=== PATIENT | male | born 1960 ===

== ENCOUNTER 2020-08-01 14:28 | Outpatient (AMBR) | payer MEDICAID, SELFPAY ==
--- NOTE | 2020-08-01 15:39 | PTNOTE_ITS ---
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 At the time of his CVA he was in [place] and was hospitalized for several weeks. Pt recently came back to the state and did a few sessions of physical therapy at [facility]. Pt currently still has difficulty with bed mobility, transfer, walking, sit-stand, standing, chores, taking showers, and performing ADLs. Objective Left UE AROM: unable Left UE PROM Shoulder Flexion: 80 deg Shoulder Abduction: 50 deg Shoulder ER: 45 deg Shoulder IR: Unable Elbow Flexion: WFL Elbow Extension: WFL Wrist: all planes WFL Left UE MMTs: grossly trace Left LE PROM: all motions are WFL Left LE AROM: unable Left LE MMTs Hip Flexors: 3-/5 Quads: 3-/5 Hs: 3-/5 Adductors: 3-/5 Assessment Pt demonstrate left side weakness consistent with right CVA leading to decline function and difficulty with ADLs. Pt will benefit from physical therapy to increase strength, mobility, and work on ambulation. Short Term and Long-Term Goals 1) Increase left shoulder MMTs grossly to 3/5 in 12 wks to able to perform self care activities 2) Increase left LE MMTs grossly to 3+/5 in 12 wks to be able to ambulate 50 ft with AD 3) Increase left LE AROM WFL in 12 wks to be able to perform bed mobility independently 4) Increase left UE AROM WFL to be able to perform transfer indep in 12 wks 5) Indep with HEP Treatment Plan 1) Manual Therapy 2) Therapeutic Activities 3) Therapeutic Exercises 4) Balance Training 5) Gait Training Frequency and Duration 2 x wk for 12 wks Certification Dates: 08/01/20 to 10/30/20 Office Procedures PT Procedures PT Date of Service: 08/01/20 OP PT Eval Low Complex 20 minutes: Yes OP PT Eval Mod Complex 30 minutes: Yes CVA/TIA Most Recent Cardiac Tests: No Data to Display
--- NOTE | 2020-09-29 13:44 | PT.ODS1RPT ---
PT OP Progress/Discharge Note Date of Service: 09/29/20 Progress Note/DC Note Progress Note/Discharge Note: DC Note Patient Information Visit Reasons: Cerebrovascular accident Service Continue Service or Discharge: Discharge Discharge Date: 09/29/20 Status Assessment: Pt was only seen for initial evaluation. As of 2020 Pt's insurance changed from straight [employer] to medical and will be d/c from care. Pt did not meet set goals in therapy, thank you for your referrals Office Procedures PT Procedures PT Date of Service: 08/01/20 OP PT Eval Low Complex 20 minutes: Yes OP PT Eval Mod Complex 30 minutes: Yes CVA/TIA Most Recent Cardiac Tests: No Data to Display
== END 2020-08-03 23:59 | disposition home or self-care (01) ==
PROVIDERS: PCP Physician Assistant Medical; Referring Provider Physician Assistant Medical; Visit Provider Physician Assistant Medical
DX: G81.94 Hemiplegia, unspecified affecting left nondominant side (principal); R26.2 Difficulty in walking, not elsewhere classified; Z99.3 Dependence on wheelchair
CPT/HCPCS: 97162